=== PATIENT | male | born 1930 | race Two or more races ===

== ENCOUNTER 2016-08-29 13:16 | Inpatient (IN) | payer MEDICARE, OTHER ==
[~2016-08-29] VITALS: Ht 172.7 cm; Wt 67.1 kg
[~2016-08-29 13:16] MED LIST: ALPR0.5T PO; DEXL60CA3 PO; DOCU250C75 PO; DONE10TA44 PO; FERR-58 PO; FINA5TAB11 PO; HYDR-4077 PO; LINA290C PO; METF500T4 PO; METO25TA6 PO; PANT40TA2 PO; QUET25TA PO; ROSU5TAB PO; SERT50TA PO; TAMS0.4C34 PO
[2016-08-29] MEDS ORDERED: IV NS 0.9% 1,000 ML BAG IV ONE ×2 (13:30→15:00)
[2016-08-29] MEDS ORDERED: IV NS 0.9% 1,000 ML ONE ×2 (13:34→15:24)
[2016-08-29] MEDS ORDERED: IV SET PRIMARY PUMP SET 1 EA INFUS.SET MC ONE ×3 (13:34→17:36)
[2016-08-29 13:40] LABS: BASOPHILS # (AUTO) 0.2 /CMM (0.0-0.2); BASOPHILS % (AUTO) 2.9 % (0.0-2.0); DIFF TOTAL % 100 %; EOSINOPHILS # (AUTO) 0.2 /CMM (0.0-0.7); EOSINOPHILS % (AUTO) 4.1 % (0.0-6.0); HEMATOCRIT 32 % (39-51); HEMOGLOBIN 10.6 g/dL (13.5-17.5); LYMPHOCYTES # (AUTO) 0.9 /CMM (0.8-4.8); LYMPHOCYTES % (AUTO) 16.1 % (20.0-44.0); MEAN CORPUSCULAR HEMOGLOBIN 26 PG (26.0-33.0); MEAN CORPUSCULAR HGB CONC 33 g/dl (31.0-36.0); MEAN CORPUSCULAR VOLUME 80 fL (80-96); MONOCYTES # (AUTO) 0.4 /CMM (0.1-1.30); MONOCYTES % (AUTO) 6.4 % (2.0-12.0); NEUTROPHILS # (AUTO) 4.2 /CMM (1.8-8.9); NEUTROPHILS % (AUTO) 70.5 % (43.0-81.0); PLATELET COUNT (AUTO) 297 /CMM (150-450); RED BLOOD CELL COUNT(AUTO) 4.01 MIL/uL (4.5-6.0); WHITE BLOOD COUNT (AUTO) 5.9 K/uL (4.3-11.0)
[2016-08-29 13:46] LABS: KETONES,URINE Negative (NEGATIVE); LEUKOCYTE ESTERASE ,URINE Negative (NEGATIVE); PH,URINE 6.5 (5.0-8.0)
[2016-08-29 13:51] LABS: ADD UA MICROSCOPIC YES
[2016-08-29 13:54] LABS: ANION GAP 12 (5-14); CALCIUM, SERUM 8.9 mg/dL (8.5-10.1); CARBON DIOXIDE 29 mmol/L (21-32); CHLORIDE 100 mmol/L (98-107); CREATININE 1.2 mg/dL (0.6-1.3); GLUCOSE 138 mg/dL (74-106); INR 1.19 (0.87-1.13); POTASSIUM 3.9 mmol/L (3.5-5.1); PROTHROMBIN TIME 12.5 SECS (9.5-12.7); SODIUM SERUM 137 mmol/L (136-145); UREA NITROGEN, BLOOD 20 mg/dL (7-18)
[2016-08-29 14:00] LABS: LACTIC ACID 1.2 mmol/L (0.4-2.0)
[2016-08-29 14:03] LABS: TROPONIN I < 0.017 ng/mL (0.00-0.056)
[2016-08-29 14:06] LABS: ALANINE AMINOTRANSFERASE 13 U/L (12-78); ASPARTATE AMINOTRANSFERASE 14 U/L (15-37); BILIRUBIN,DIRECT 0.1 mg/dL (0.0-0.2); BILIRUBIN,TOTAL 0.5 mg/dL (0.2-1.0); INDIRECT BILIRUBIN 0.4 mg/dL (0.0-1.1); TOTAL PROTEIN, SERUM 7.2 g/dL (6.4-8.2)
[2016-08-29] MEDS ORDERED: METO25TA PO (14:11)
[2016-08-29 14:25] LABS: ADD URINE CULTURE NO; WBC,URINE NONE SEEN /HPF (0-3)
[2016-08-29] MEDS ORDERED: ACETAMINOPHEN 325 MG TABLET PO ONE (14:30)
[2016-08-29] MEDS ORDERED: IBUPROFEN 600 MG TABLET PO ONE ×2 (14:59→15:00)
[2016-08-29] MEDS ORDERED: OLANZAPINE 5 MG/TAB.RAPDIS ONE (14:59)
[2016-08-29] MEDS ORDERED: LORAZEPAM INJ 2 MG/ML VIAL IV ONE (15:00)
[2016-08-29] MEDS ORDERED: CEFTRIAXONE 1GM BAG (ER ONLY) 1 GM/50 ML PIGGYBACK IV ONE (15:00)
[2016-08-29] MEDS ORDERED: LORAZEPAM INJ 2 MG/ML VIAL ONE (15:00)
[2016-08-29] MEDS ORDERED: OLANZAPINE 5 MG/TAB.RAPDIS PO ONE (15:00)
[2016-08-29] MEDS ORDERED: ACETAMINOPHEN 650 MG/SUPP.RECT RC ONE ×2 (15:15→15:30)
[2016-08-29] MEDS ORDERED: CEFTRIAXONE 1GM BAG (ER ONLY) 50 ML IV ONE (15:16)
[2016-08-29] MEDS ORDERED: IV SET PRIMARY 1 EA INFUS.SET MC ONE (15:24)
[2016-08-29] MEDS ORDERED: SECONDARY IV SET 1 EA INFUS.SET MC ONE ×3 (15:28→19:49)
[2016-08-29] MEDS ORDERED: IV NS 0.9% 100 ML IV ONE (15:28)
[2016-08-29 16:00] VITALS: BP 117/59
[2016-08-29] MEDS ORDERED: IV NS 0.9% 100 ML BAG IV ONE (16:00)
[2016-08-29 16:13] VITALS: BP 114/73
[2016-08-29] MEDS ORDERED: MAG HYDROX/AL HYDROX/SIMETH 30 ML UDC PO PRN (17:30)
[2016-08-29] MEDS ORDERED: VANCOMYCIN 1 GM in IV D5W 250 ML IV SCH (17:30)
[2016-08-29] MEDS ORDERED: MAGNESIUM HYDROXIDE 30 ML UDC PO PRN (17:30)
[2016-08-29] MEDS ORDERED: ZOLPIDEM TARTRATE 5 MG TABLET PO PRN (17:30)
[2016-08-29] MEDS ORDERED: ONDANSETRON HCL/PF 4 MG/2 ML VIAL IVP PRN (17:30)
[2016-08-29] MEDS ORDERED: HYDROCODONE/APAP 5/325MG 1 EACH TABLET PO PRN (17:30)
[2016-08-29] MEDS ORDERED: Z GUARD REMEDY 2 OZ OINT TP PRN (17:30)
[2016-08-29] MEDS: IV NS 0.9% 1,000 ML IV PRN (17:37)
[2016-08-29] MEDS: QUETIAPINE FUMARATE 25 MG TABLET PO SCH (17:42)
[2016-08-29] MEDS: ENOXAPARIN SODIUM 40 MG/0.4 ML DISP.SYRIN SQ SCH (17:43)
[2016-08-29] MEDS ORDERED: FEE PK DOSING 1 MIN EA MC ONE (17:49)
[2016-08-29] MEDS: PIPERACILLIN /TAZOBACTAM 3.375 G in IV D5W 50 ML IV SCH (18:22)
[2016-08-29] MEDS: VANCOMYCIN 1 GM in IV D5W 250 ML IV SCH (19:57)
[2016-08-29 20:00] VITALS: BP 135/81
[2016-08-29] MEDS ORDERED: PIPERACILLIN /TAZOBACTAM 4.5 G in IV D5W 50 ML IV SCH (21:00)
[2016-08-29] MEDS ORDERED: QUETIAPINE FUMARATE 25 MG TABLET PO SCH (22:00)
[2016-08-30] VITALS: BP 119/69
[2016-08-30] MEDS ORDERED: SECONDARY IV SET 1 EA INFUS.SET MC ONE
[2016-08-30] MEDS: PIPERACILLIN /TAZOBACTAM 3.375 G in IV D5W 50 ML IV SCH ×5 (00:09→23:41)
[2016-08-30] MEDS ORDERED: LORAZEPAM 1 MG TABLET ONE (00:36)
[2016-08-30] MEDS: LORAZEPAM 1 MG TABLET PO PRN (00:40)
[2016-08-30 04:00] VITALS: BP 113/69
[2016-08-30 06:59] LABS: BASOPHILS # (AUTO) 0.1 /CMM (0.0-0.2); DIFF TOTAL % 100 %; EOSINOPHILS # (AUTO) 0.6 /CMM (0.0-0.7); EOSINOPHILS % (AUTO) 11.3 % (0.0-6.0); HEMATOCRIT 30 % (39-51); HEMOGLOBIN 9.7 g/dL (13.5-17.5); MEAN CORPUSCULAR HEMOGLOBIN 26 PG (26.0-33.0); MEAN CORPUSCULAR HGB CONC 32 g/dl (31.0-36.0); MEAN CORPUSCULAR VOLUME 81 fL (80-96); MONOCYTES # (AUTO) 0.5 /CMM (0.1-1.30); MONOCYTES % (AUTO) 9.8 % (2.0-12.0); NEUTROPHILS # (AUTO) 3.3 /CMM (1.8-8.9); NEUTROPHILS % (AUTO) 59.9 % (43.0-81.0); PLATELET COUNT (AUTO) 266 /CMM (150-450); RED BLOOD CELL COUNT(AUTO) 3.75 MIL/uL (4.5-6.0); WHITE BLOOD COUNT (AUTO) 5.5 K/uL (4.3-11.0)
[2016-08-30 07:23] LABS: CALCIUM, SERUM 8.7 mg/dL (8.5-10.1); CREATININE 1.1 mg/dL (0.6-1.3); PHOSPHORUS 3.2 mg/dL (2.5-4.9); POTASSIUM 3.7 mmol/L (3.5-5.1)
[2016-08-30 07:32] LABS: THYROID STIMULATING HORMONE 1.009 uIU/mL (0.358-3.74)
[2016-08-30 08:00] VITALS: BP 109/70
[2016-08-30] MEDS: DOCUSATE SODIUM 250 MG CAPSULE PO SCH (08:42)
[2016-08-30] MEDS: QUETIAPINE FUMARATE 25 MG TABLET PO SCH ×2 (08:42→17:06)
[2016-08-30] MEDS: FERROUS SULFATE (325 MG) 325 MG/TAB TABLET PO SCH ×2 (08:42→17:05)
[2016-08-30] MEDS: TAMSULOSIN 0.4 MG CAP.SR.24H PO SCH ×2 (08:42→17:06)
[2016-08-30] MEDS: FINASTERIDE (5 MG) 5 MG TABLET PO SCH (08:42)
[2016-08-30] MEDS: PANTOPRAZOLE 40 MG TABLET.DR PO SCH (08:42)
[2016-08-30] MEDS: METOPROLOL SUCCINATE 25 MG TAB.SR.24H PO SCH (08:44)
[2016-08-30] MEDS: IV NS 0.9% 1,000 ML IV PRN (08:56)
[2016-08-30 10:24] LABS: URIC ACID 3.4 mg/dL (2.6-7.2)
[2016-08-30 12:00] VITALS: BP 127/67
[2016-08-30] MEDS: VANCOMYCIN 1 GM in IV D5W 250 ML IV SCH (14:04)
[2016-08-30] MEDS ORDERED: LORAZEPAM INJ 2 MG/ML VIAL IV ONE (14:30)
[2016-08-30 16:00] VITALS: BP 110/71
[2016-08-30 20:00] VITALS: BP 101/57
[2016-08-30] MEDS: ENOXAPARIN SODIUM 40 MG/0.4 ML DISP.SYRIN SQ SCH (20:19)
[2016-08-31] VITALS: BP_SYST 102; BP_SYST 120; BP_DIAS 63; BP_DIAS 69
[2016-08-31] MEDS: IV NS 0.9% 1,000 ML IV PRN ×2 (00:49→16:32)
[2016-08-31 04:00] VITALS: BP 113/69
[2016-08-31] MEDS: PIPERACILLIN /TAZOBACTAM 3.375 G in IV D5W 50 ML IV SCH ×2 (06:13→11:31)
[2016-08-31 07:13] LABS: CALCIUM, SERUM 8.7 mg/dL (8.5-10.1); CREATININE 1.2 mg/dL (0.6-1.3); POTASSIUM 3.7 mmol/L (3.5-5.1)
[2016-08-31 07:17] LABS: VIT D, 25-HYDROXY 23.9 ng/mL (30.0-100.0)
[2016-08-31 08:00] VITALS: BP 125/78
[2016-08-31] MEDS: VANCOMYCIN 1 GM in IV D5W 250 ML IV SCH (08:07)
[2016-08-31] MEDS: FERROUS SULFATE (325 MG) 325 MG/TAB TABLET PO SCH ×2 (08:07→16:31)
[2016-08-31] MEDS: TAMSULOSIN 0.4 MG CAP.SR.24H PO SCH ×2 (08:07→16:31)
[2016-08-31] MEDS: DOCUSATE SODIUM 250 MG CAPSULE PO SCH (08:07)
[2016-08-31] MEDS: PANTOPRAZOLE 40 MG TABLET.DR PO SCH (08:07)
[2016-08-31] MEDS: QUETIAPINE FUMARATE 25 MG TABLET PO SCH ×2 (08:07→16:32)
[2016-08-31] MEDS: METOPROLOL SUCCINATE 25 MG TAB.SR.24H PO SCH (08:08)
[2016-08-31] MEDS: FINASTERIDE (5 MG) 5 MG TABLET PO SCH (08:13)
[2016-08-31] MEDS ORDERED: ASPI81TA2 PO (11:20)
[2016-08-31] MEDS ORDERED: POLYETHYLENE GLYCOL 3350 17 GM POWD.PACK PO PRN (12:00)
[2016-08-31 16:00] VITALS: BP 135/89
[2016-08-31] MEDS: ACETAMINOPHEN 325 MG TABLET PO PRN (18:16)
[2016-08-31 20:00] VITALS: BP_SYST 103; BP_DIAS 55; BP_DIAS 65
[2016-08-31] MEDS: ENOXAPARIN SODIUM 40 MG/0.4 ML DISP.SYRIN SQ SCH (20:39)
[2016-08-31] MEDS: LORAZEPAM 1 MG TABLET PO PRN (23:32)
[2016-09-01 04:00] VITALS: BP 123/69
[2016-09-01] MEDS: IV NS 0.9% 1,000 ML IV PRN (06:18)
[2016-09-01] MEDS: ACETAMINOPHEN 325 MG TABLET PO PRN ×2 (06:36→13:41)
[2016-09-01 06:44] LABS: CALCIUM, SERUM 8.9 mg/dL (8.5-10.1); CREATININE 1.2 mg/dL (0.6-1.3); POTASSIUM 4.2 mmol/L (3.5-5.1)
[2016-09-01] MEDS: PANTOPRAZOLE 40 MG TABLET.DR PO SCH (07:30)
[2016-09-01] MEDS ORDERED: ASPIRIN 81 MG TAB.CHEW PO SCH (09:00)
[2016-09-01] MEDS: QUETIAPINE FUMARATE 25 MG TABLET PO SCH (09:00)
[2016-09-01] MEDS: DOCUSATE SODIUM 250 MG CAPSULE PO SCH (09:00)
[2016-09-01] MEDS: METOPROLOL SUCCINATE 25 MG TAB.SR.24H PO SCH ×2 (09:00→10:54)
[2016-09-01] MEDS: TAMSULOSIN 0.4 MG CAP.SR.24H PO SCH (09:07)
[2016-09-01] MEDS: FINASTERIDE (5 MG) 5 MG TABLET PO SCH (09:07)
[2016-09-01] MEDS: FERROUS SULFATE (325 MG) 325 MG/TAB TABLET PO SCH (09:07)
[2016-09-01 10:54] VITALS: BP 109/71
[2016-09-01] MEDS: LORAZEPAM 1 MG TABLET PO PRN (14:11)
== END 2016-09-01 14:38 | disposition home health service (06) | DRG 374 ==
LOC: ER 13:17 → TELE1 15:25 → MEDSG1 08-31 19:32
PROVIDERS: ADMIT Internal Medicine; ATTEND Internal Medicine
DX: C18.0 Malignant neoplasm of cecum (principal); G93.41 Metabolic encephalopathy; N17.0 Acute kidney failure with tubular necrosis; I69.354 Hemiplegia and hemiparesis following cerebral infarction affecting left non-dominant side; K80.20 Calculus of gallbladder without cholecystitis without obstruction; N40.0 Benign prostatic hyperplasia without lower urinary tract symptoms; D50.0 Iron deficiency anemia secondary to blood loss (chronic); E11.9 Type 2 diabetes mellitus without complications; E78.00 Pure hypercholesterolemia, unspecified; E78.5 Hyperlipidemia, unspecified; F03.90 Unspecified dementia, unspecified severity, without behavioral disturbance, psychotic disturbance, mood disturbance, and anxiety; G89.29 Other chronic pain; K21.9 Gastro-esophageal reflux disease without esophagitis; I10 Essential (primary) hypertension; R50.81 Fever presenting with conditions classified elsewhere
CPT/HCPCS: 36415; 70450-TC; 71010-TC; 80048-TC; 80061-TC; 80076-TC; 81000-TC; 82272-TC; 82306; 82378; 82728-TC; 83540-TC; 83605-TC; 83615-TC; 83735-TC; 84100-TC; 84443-TC; 84484-TC; 84550-TC; 85025-TC; 85045-TC; 85652-TC; 85730-TC; 87040-TC; 87081-TC; 87400; A4606; J0696; J1650; J2060; J2543; J3370; J7030; J7060; Z7610